=== PATIENT | female | born 1945 | race Caucasian/White ===

== ENCOUNTER → 2025-04-24 | Outpatient (CLI) | payer MEDICARE, BC, SELFPAY ==
--- NOTE | 2025-04-24 10:12 | ECHOD_ITS ---
Reason For Study Reason For Study: AFib/Flutter Procedure This was a 2D Doppler, Color Flow transthoracic echocardiogram. Exam performed in department. Left Ventricle Normal LV size. The left ventricular ejection fraction is 55 %. Left ventricular systolic function is normal. No regional wall motion abnormalities noted. Right Ventricle Normal RV size. ICD or pacer leads identified within the right ventricle. Normal systolic function. Atria Normal left atrium. Normal right atrium. Mitral Valve Normal mitral valve. Tricuspid Valve Normal tricuspid valve. Mild (1+) tricuspid valve insufficiency. Pulmonary artery systolic pressure is 40 mmHg. Aortic Valve Trisinus/trileaflet aortic valve. Mild focal aortic valve calcification. Pulmonic Valve Normal pulmonic valve. Great Vessels Normal aortic root. The pulmonary artery is normal size. Inferior vena cava collapse with respiration. Pericardium/Pleural No pericardial effusion. MMode/2D Measurements & Calculations LVIDd: 4.3 cm IVSd: 1.00 cm Ao root diam: 3.7 cm LVIDs: 2.9 cm LVPWd: 0.85 cm RVDd: 4.1 cm FS: 32.0 % LAV(MOD-bp): 62.5 ml LVAd ap4: 21.8 cm2 SV(MOD-sp4): 31.3 ml LAV(MOD-bp) Indexed: 40.7 ml/m2 LVLd ap4: 6.4 cm SI(MOD-sp4): 20.4 ml/m2 LAV(MOD-sp2): 53.3 ml EDV(MOD-sp4): 61.3 ml LAV(MOD-sp4): 62.8 ml EDV(sp4-el): 63.5 ml LVAs ap4: 13.7 cm2 LVLs ap4: 5.7 cm ESV(MOD-sp4): 30.1 ml ESV(sp4-el): 28.2 ml EF(MOD-sp4): 51.0 % EF(sp4-el): 55.7 % SV(sp4-el): 35.3 ml LA A4 area: 21.0 cm2 LA dimension(2D): 3.8 cm RA A4 area: 15.2 cm2 TAPSE: 1.8 cm Time Measurements MV dec time: 0.21 sec Doppler Measurements & Calculations MV E max william: 88.6 cm/sec Lat Peak E' William: 8.3 cm/sec Med Peak E' William: 6.5 cm/sec MV A max william: 69.2 cm/sec E/E' lat: 10.7 E/E' med: 13.7 MV E/A: 1.3 MV V2 max: 108.7 cm/sec MV P1/2t max william: 111.6 cm/sec Ao V2 max: 125.5 cm/sec MV max P.7 mmHg MV P1/2t: 80.5 msec Ao max P.3 mmHg MV V2 mean: 54.5 cm/sec Ao V2 mean: 88.2 cm/sec MV mean P.4 mmHg MV dec slope: 406.1 cm/sec2 Ao mean P.6 mmHg MV V2 VTI: 34.0 cm MVA(P1/2t): 2.7 cm2 Ao V2 VTI: 29.5 cm AV (velocity ratio): 0.82 LV V1 max: 114.0 cm/sec MR max william: 524.1 cm/sec PA V2 max: 123.1 cm/sec LV V1 max P.2 mmHg MR max P.9 mmHg LV V1 mean P.8 mmHg LV V1 mean: 78.7 cm/sec LV V1 VTI: 24.2 cm TR max william: 298.0 cm/sec TR max P.5 mmHg ECHO/Echo Complete Interpretation Summary Normal LV size. The left ventricular ejection fraction is 55 %. Left ventricular systolic function is normal. Pulmonary artery systolic pressure is 40 mmHg. Ordering Physician: Loyd, Douglas Referring Physician: Douglas Harp Performed By: Cezar Worley RCS
== END | disposition home or self-care (01) ==
LOC: CVS 10:09
PROVIDERS: PCP Nurse Practitioner Adult Health; Referring Provider Internal Medicine Cardiovascular Disease; Visit Provider Internal Medicine Cardiovascular Disease
DX: I48.91 Unspecified atrial fibrillation (principal); R94.31 Abnormal electrocardiogram [ECG] [EKG]; Z95.0 Presence of cardiac pacemaker
CPT/HCPCS: 93306